=== PATIENT | male | born 1965 | race Caucasian/White ===

== ENCOUNTER 2017-11-24 10:54 | Day surgery (SDC) | payer OTHER ==
[2017-11-17 17:44] VITALS: BMI 34.8
[2017-11-24 11:26] VITALS: TEMP 99
[2017-11-24] MEDS ORDERED: PROPOFOL 20 ML ONE ×3 (12:23→12:59)
[2017-11-24] MEDS ORDERED: LIDOCAINE HCL/PF 2% SDV 5ML VIAL ONE (12:24)
[2017-11-24 13:46] VITALS: BP 108/68; PULSE 63
== END 2017-11-24 13:50 | disposition home or self-care (01) ==
LOC: FASU-ENDO 10:54
PROVIDERS: ATTEND Internal Medicine Gastroenterology
PROC: 0DJD8ZZ Inspection of Lower Intestinal Tract, Via Natural or Artificial Opening Endoscopic (ICD-10-PCS; principal; 2017-11-24 12:56)
DX: Z12.11 Encounter for screening for malignant neoplasm of colon (principal); K57.30 Diverticulosis of large intestine without perforation or abscess without bleeding